=== PATIENT | female | born 1970 | race American Indian/Alaskan Native ===

== ENCOUNTER 2018-03-09 08:31 | Emergency (ER) | payer MEDICAID, OTHER ==
[~2018-03-09] VITALS: Ht 165.1 cm; Wt 65.8 kg
[~2018-03-09 08:31] MED LIST: ASPI-611 PO; COROTSUS OT; DULO-31 PO; LORA1TAB PO; MULT-920 PO; PROP10TA10 PO
[2018-03-09 09:39] VITALS: BP 122/96
[2018-03-09] MEDS ORDERED: AZIT250T PO (10:03)
[2018-03-09] MEDS ORDERED: BENZ-16 PO (10:03)
== END 2018-03-09 10:20 | disposition home or self-care (01) ==
LOC: ER 08:31
DX: J06.9 Acute upper respiratory infection, unspecified (principal); I25.2 Old myocardial infarction; F12.90 Cannabis use, unspecified, uncomplicated; Z86.73 Personal history of transient ischemic attack (TIA), and cerebral infarction without residual deficits; Z98.51 Tubal ligation status; Z91.040 Latex allergy status; Z79.82 Long term (current) use of aspirin; Z79.2 Long term (current) use of antibiotics; Z79.899 Other long term (current) drug therapy
CPT/HCPCS: 71045; 87502; 87503; 99284

== ENCOUNTER 2019-09-01 19:42 | Emergency (ER) | payer MEDICAID, OTHER ==
[~2019-09-01] VITALS: Ht 165.1 cm; Wt 60.0 kg
[~2019-09-01 19:42] MED LIST changes: +BENZ-16 PO
[2019-09-01 19:52] VITALS: BP 140/87
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
--- NOTE | 2019-09-01 20:35 | NUR ---
removed ring with ring cutter, pt aroldo well
[2019-09-01] MEDS ORDERED: silver sulfadiazine cream 400gm jar TP STA (20:38)
[2019-09-01] MEDS ORDERED: LIDOcaine/epinephrine/tetracaine TOPICAL sol 3 ML syringe TOP ONE (20:40)
[2019-09-01] MEDS ORDERED: TETanus/Pertussis (Acell)/Diphther VAC/PF (Tdap-Adult) 0.5ml syringe IMVAC ONE (20:40)
[2019-09-01] MEDS ORDERED: silver sulfadiazine cream 50gm TP STA (20:42)
== END 2019-09-01 21:14 | disposition home or self-care (01) ==
LOC: ER 19:43
DX: T23.201A Burn of second degree of right hand, unspecified site, initial encounter (principal); F41.9 Anxiety disorder, unspecified; F32.9 Major depressive disorder, single episode, unspecified; I25.2 Old myocardial infarction; Z86.73 Personal history of transient ischemic attack (TIA), and cerebral infarction without residual deficits; Z98.51 Tubal ligation status; Z91.040 Latex allergy status; Z79.82 Long term (current) use of aspirin; Z79.899 Other long term (current) drug therapy
CPT/HCPCS: 16020; 90471; 90715; 99283

== ENCOUNTER 2020-01-18 14:05 | Emergency (ER) | payer MEDICAID, OTHER ==
[~2020-01-18] VITALS: Ht 165.1 cm; Wt 63.6 kg
== END 2020-01-18 14:56 | disposition home or self-care (01) ==
LOC: ER 14:06
DX: R51.9 Headache, unspecified (principal); R42 Dizziness and giddiness; R11.10 Vomiting, unspecified; F41.9 Anxiety disorder, unspecified; F32.9 Major depressive disorder, single episode, unspecified; F12.10 Cannabis abuse, uncomplicated; Z98.51 Tubal ligation status; Z20.828 Contact with and (suspected) exposure to other viral communicable diseases; Z79.899 Other long term (current) drug therapy; Z91.040 Latex allergy status; Z79.82 Long term (current) use of aspirin
CPT/HCPCS: 36415; 87635; 99283

== ENCOUNTER 2020-09-19 14:50 | Emergency (ER) | payer MEDICAID ==
[~2020-09-19] VITALS: Ht 162.6 cm; Wt 60.0 kg
== END 2020-09-19 16:50 | disposition home or self-care (01) ==
LOC: ER 14:50
DX: J06.9 Acute upper respiratory infection, unspecified (principal); Z20.822 Contact with and (suspected) exposure to COVID-19; I51.9 Heart disease, unspecified; F41.9 Anxiety disorder, unspecified; F32.9 Major depressive disorder, single episode, unspecified; F12.10 Cannabis abuse, uncomplicated; Z91.040 Latex allergy status; Z79.899 Other long term (current) drug therapy
CPT/HCPCS: 87635; 99283; C9803

== ENCOUNTER 2020-10-01 15:29 | Emergency (ER) | payer MEDICAID ==
[~2020-10-01] VITALS: Ht 162.6 cm; Wt 59.1 kg
[2020-10-01 16:17] VITALS: BP 117/82
[2020-10-01 16:41] LABS: BASOPHILS % (AUTO) 0.7 % (0-1); EOSINOPHILS # (AUTO) 0.1 X10'3 (0-0.9); EOSINOPHILS % (AUTO) 1.9 % (0-6); HEMATOCRIT 45.5 % (35.0-45.0); HEMOGLOBIN 15.6 g/dl (12.0-16.0); LYMPHOCYTES # (AUTO) 1.6 X10'3 (1.1-4.8); LYMPHOCYTES % (AUTO) 30.1 % (21-51); MEAN CORPUSCULAR HEMOGLOBIN 31.2 PG (27.0-31.0); MEAN CORPUSCULAR HGB CONC 34.2 g/dL (33.0-36.5); MEAN CORPUSCULAR VOLUME 91.2 FL (78-98); MEAN PLATELET VOLUME 7.1 FL (7.4-10.4); MONOCYTES # (AUTO) 0.5 X10'3 (0-0.9); MONOCYTES % (AUTO) 9.2 % (2-12); NEUTROPHILS # (AUTO) 3.1 X10'3 (1.8-7.7); NEUTROPHILS % (AUTO) 58.1 % (42-75); PLATELET COUNT 212 X10'3 (140-440); RED BLOOD COUNT 4.99 X10'6 (4.20-5.60); WHITE BLOOD COUNT 5.4 X10'3 (4.5-11.0)
[2020-10-01 16:51] LABS: ALANINE AMINOTRANSFERASE 37 U/L (12-78); ALBUMIN 3.6 G/DL (3.4-5.0); ALKALINE PHOSPHATASE 66 IU/L (46-116); ANION GAP 12 (8-16); ASPARTATE AMINO TRANSFERASE 21 U/L (10-37); BILIRUBIN,TOTAL 0.3 MG/DL (0.1-1.0); BLOOD UREA NITROGEN 14 MG/DL (7-18); BUN/CREATININE RATIO 13.2 (6.6-38.0); CALCIUM 8.9 MG/DL (8.5-10.1); CHLORIDE 105 MMOL/L (99-107); CREATININE 1.06 MG/DL (0.40-0.90); GLUCOSE 101 MG/DL (70-104); LACTATE DEHYDROGENASE 263 U/L (81-234); SODIUM 139 MMOL/L (135-145); TOTAL PROTEIN 7.1 G/DL (6.4-8.2); eGFR 55 ML/MIN
[2020-10-01 16:54] LABS: C-REACTIVE PROTEIN < 0.05 MG/DL (0.0-0.5)
[2020-10-01 17:51] LABS: D-DIMER 0.25 MG/L FEU (0-0.50)
[2020-10-01] MEDS ORDERED: PRED20TA PO (18:08)
== END 2020-10-01 18:20 | disposition home or self-care (01) ==
LOC: ER 15:29
DX: R06.02 Shortness of breath (principal); Z20.822 Contact with and (suspected) exposure to COVID-19; R05 Cough; R42 Dizziness and giddiness; R53.83 Other fatigue; I25.2 Old myocardial infarction; F41.9 Anxiety disorder, unspecified; F32.9 Major depressive disorder, single episode, unspecified; F12.90 Cannabis use, unspecified, uncomplicated; Z86.73 Personal history of transient ischemic attack (TIA), and cerebral infarction without residual deficits; Z98.51 Tubal ligation status; Z72.89 Other problems related to lifestyle; Z87.01 Personal history of pneumonia (recurrent); Z91.040 Latex allergy status; Z79.82 Long term (current) use of aspirin; Z79.2 Long term (current) use of antibiotics; Z79.899 Other long term (current) drug therapy
CPT/HCPCS: 36415; 71045; 80053; 83615; 85025; 85379; 86140; 87635; 99284; C9803

== ENCOUNTER 2020-12-19 17:17 | Emergency (ER) | payer MEDICAID ==
[~2020-12-19] VITALS: Ht 160 cm; Wt 59.1 kg
[2020-12-19 17:26] VITALS: BP 142/92
[2020-12-19] MEDS ORDERED: proparacaine 0.5% ophthalmic drops 15ml LEFTEYE ONE (19:00)
[2020-12-19] MEDS ORDERED: ERYT1OIN6 LEFTEYE (19:23)
== END 2020-12-19 19:36 | disposition home or self-care (01) ==
LOC: ER 17:18
DX: H10.9 Unspecified conjunctivitis (principal); B88.9 Infestation, unspecified; I25.2 Old myocardial infarction; F41.9 Anxiety disorder, unspecified; F12.90 Cannabis use, unspecified, uncomplicated; F32.9 Major depressive disorder, single episode, unspecified; Z86.73 Personal history of transient ischemic attack (TIA), and cerebral infarction without residual deficits; Z87.01 Personal history of pneumonia (recurrent); Z98.51 Tubal ligation status; Z98.890 Other specified postprocedural states; Z72.89 Other problems related to lifestyle; Z91.040 Latex allergy status; Z79.82 Long term (current) use of aspirin; Z79.899 Other long term (current) drug therapy
CPT/HCPCS: 99283

== ENCOUNTER 2021-02-21 11:29 | Emergency (ER) | payer MEDICAID ==
[2021-02-22] MEDS ORDERED: AMOX500C2 PO (16:31)
== END 2021-02-21 13:21 | disposition left against medical advice (07) ==
LOC: ER 11:31
DX: N89.8 Other specified noninflammatory disorders of vagina (principal); Z53.21 Procedure and treatment not carried out due to patient leaving prior to being seen by health care provider

== ENCOUNTER 2021-02-22 15:11 | Emergency (ER) | payer MEDICAID ==
[~2021-02-22] VITALS: Ht 162.6 cm; Wt 59.1 kg
[2021-02-22 15:25] VITALS: BP 130/89
[2021-02-22] MEDS ORDERED: AMOX500C2 PO (16:31)
== END 2021-02-22 16:43 | disposition home or self-care (01) ==
LOC: ER 15:12
DX: K04.7 Periapical abscess without sinus (principal); N75.0 Cyst of Bartholin's gland; K08.89 Other specified disorders of teeth and supporting structures; H92.02 Otalgia, left ear; I25.2 Old myocardial infarction; F41.9 Anxiety disorder, unspecified; F32.9 Major depressive disorder, single episode, unspecified; F17.200 Nicotine dependence, unspecified, uncomplicated; F12.90 Cannabis use, unspecified, uncomplicated; Z86.73 Personal history of transient ischemic attack (TIA), and cerebral infarction without residual deficits; Z87.01 Personal history of pneumonia (recurrent); Z98.51 Tubal ligation status; Z98.890 Other specified postprocedural states; Z91.040 Latex allergy status; Z79.2 Long term (current) use of antibiotics; Z79.82 Long term (current) use of aspirin; Z79.899 Other long term (current) drug therapy
CPT/HCPCS: 99283

== ENCOUNTER 2021-06-10 21:47 | Emergency (ER) | payer MEDICAID ==
[~2021-06-10] VITALS: Ht 162.6 cm; Wt 61.3 kg
[2021-06-10 22:05] VITALS: BP 131/96
== END 2021-06-10 23:01 | disposition left against medical advice (07) ==
LOC: ER 21:47
DX: Z13.89 Encounter for screening for other disorder (principal); R10.84 Generalized abdominal pain; I25.2 Old myocardial infarction; F41.9 Anxiety disorder, unspecified; F32.A Depression, unspecified; F12.90 Cannabis use, unspecified, uncomplicated; Z86.73 Personal history of transient ischemic attack (TIA), and cerebral infarction without residual deficits; Z87.01 Personal history of pneumonia (recurrent); Z98.51 Tubal ligation status; Z98.890 Other specified postprocedural states; Z91.040 Latex allergy status; Z79.82 Long term (current) use of aspirin; Z79.899 Other long term (current) drug therapy
CPT/HCPCS: 99281